=== PATIENT | male | born 1990 | race Caucasian/White ===

== ENCOUNTER 2018-10-04 13:39 | Emergency (ER) | payer MEDICAID ==
--- NOTE | 2018-10-04 14:29 | ED Physician Chart ---
ED Chief Complaint/HPI - Patient Information Date Seen:: 10/04/18 Time Seen:: 14:00 Chief Complaint:: RIGHT ARM LACERATION History of Present Illness:: THIS IS A 28 YO MALE WHO STATES THAT AT ABOUT 0730 THIS AM HE SUSTAINED A LACERATION OF HIS RIGHT ELBOW AND DORSAL FOREARM. HE DENIES HAVING ANY OTHER INJURIES. Allergies:: Allergies Allergy/AdvReac Type Severity Reaction Status Date / Time No Known Allergies Allergy Verified 10/04/18 13:54 Vitals:: Vital Signs - 8 hr 10/04/18 10/04/18 13:55 13:56 Temp 98.3 F 98.3 F HR 117 117 RR 23 23 BP 159/102 150/90 O2 Sat % 99 99 Historian:: Patient Review:: Nurse's Note Reviewed ED Review of Systems - Review of Systems General/Constitutional: No fever, No chills, No weight loss, No weakness, No diaphoresis, No edema, No loss of appetite Skin: No skin lesions, No rash, No bruising, Other (LACERATION OF THE RIGHT ARM) Head: No headache, No light-headedness Eyes: No loss of vision, No pain, No diplopia ENT: No earache, No nasal drainage, No sore throat, No tinnitus Neck: No neck pain, No swelling, No thyromegaly, No stiffness, No mass noted Cardio Vascular: No chest pain, No palpitations, No PND, No orthopnea, No edema Pulmonary: No SOB, No cough, No sputum, No wheezing GI: No nausea, No vomiting, No diarrhea, No pain, No melena, No hematochezia, No constipation, No hematemesis G/U: No dysuria, No frequency, No hematuria Musculoskeletal: No bone or joint pain, No back pain, No muscle pain Endocrine: No polyuria, No polydipsia Psychiatric: No prior psych history, No depression, No anxiety, No suicidal ideation Hematopoietic: No bruising, No lymphadenopathy Allergic/Immuno: No urticaria, No angioedema Neurological: No syncope, No focal symptoms, No weakness, No paresthesia, No headache, No seizure, No dizziness, No confusion, No vertigo ED Past Medical History - Past Medical History Obtainable: Yes Past Medical History: No significant medical hx Family History: None Social History: Non Smoker, No Alcohol, No Drug Use, Employed Surgical History: None Psychiatricy History: None Medication: Reviewed ED Physical Exam - Physical Examination General/Constitutional: Awake, Well-developed, well-nourished, Alert, No distress, GCS 15, Non-toxic appearing, Ambulatory Head: Atraumatic Eyes: Lids, conjuctiva normal, PERRL, EOMI Skin: Nl inspection, No rash, No skin lesions, No ecchymosis, Well hydrated, No lymphadenopathy Other Skin comments:: THERE IS A PUNCTURE WOUND OF THE RIGHT ELBOW WITH A LONG SUPERFICIAL LACERATION 12 CM IN LENGTH OF THE FOREARM. ENMT: External ears, nose nl, Nasal exam nl, Lips, teeth, gums nl Neck: Nontender, Full ROM w/o pain, No JVD, No nuchal rigidity, No bruit, No mass, No stridor Respiratory: Nl effort/Exclusion, Clear to Auscultation, No Wheeze/Rhonchi/Rales Cardio Vascular: RRR, No murmur, gallop, rubs, NL S1 S2 GI: No tenderness/rebounding/guarding, No organomegaly, No hernia, Normal BS's, Nondistended, No mass/bruits, No McBurney tenderness : No CVA tenderness Extremities: No tenderness or effusion, Full ROM, normal strength in all extremities, No edema, Normal digits & nails Neuro/Psych: Alert/oriented, DTR's symmetric, Normal sensory exam, Normal motor strength, Judgement/insight normal, Mood normal, Normal gait, No focal deficits Misc: Normal back, No paraspinal tenderness ED Assessment - Assessment General Assessment: RIGHT ARM LACERATION - Procedures Informed Consent: Procedure/risk/benefits explained by MD: Yes Location:: RIGHT FORE ARM Laceration Type:: Simple Wound Length: 12 cm Prep/Irrigation:: BETADINE AND H2O2 Inspection: No dirt/debris, Bases & margins visual, NO FB Local Anesthetic:: XYLOCAINE 1% 4CC Jas #: 17 Post Procedure/Splint Exam: No Active Bleeding, Full Range of Motion, Neuro/ Vascular Exam (NORMAL) ED Septic Shock - . Is Septic Shock (SBP<90, OR Lactate>4 mmol\L) present?: No - <6hrs of presentation: Vital Signs: Vital Signs - 8 hr 10/04/18 10/04/18 13:55 13:56 Temp 98.3 F 98.3 F HR 117 117 RR 23 23 BP 159/102 150/90 O2 Sat % 99 99 ED Reassessment (Disposition) - Reassessment Reassessment Condition:: Improved - Diagnosis Diagnosis:: LACERATION OF THE RIGHT ARM - Aftercare/Follow up Instructions Aftercare/Follow-Up Instructions:: Counseled pt regarding lab results/diagnosis & need follow up, Refer to Discharge Instructions, Counseled pt & family regarding lab results/diagnosis & need follow up Medication Prescribed:: Z-CECELIA - Patient Disposition Discharge/Transfer:: Home Condition at Disposition:: Stable, Improved
== END 2018-10-04 14:45 | disposition home or self-care (01) ==
LOC: ER 13:39
DX: S51.811A Laceration without foreign body of right forearm, initial encounter (principal); S51.011A Laceration without foreign body of right elbow, initial encounter; S51.031A Puncture wound without foreign body of right elbow, initial encounter; X58.XXXA Exposure to other specified factors, initial encounter; Y93.89 Activity, other specified; Y92.89 Other specified places as the place of occurrence of the external cause; Y99.8 Other external cause status
CPT/HCPCS: 99284; 12004; 90715; 96372; J0696; A4217; Z7502; Z7610